=== PATIENT | female | born 1995 | race Caucasian/White ===

== ENCOUNTER 2017-08-16 20:38 | Emergency (ER) | payer OTHER ==
[~2017-08-16] VITALS: Ht 160 cm; Wt 79.5 kg
[2017-08-16 20:42] VITALS: TEMP 99.1
[2017-08-16] MEDS ORDERED: NAPROSYN500 MG PO (22:07)
[2017-08-16 22:22] VITALS: BP 146/75; PULSE 75
== END 2017-08-16 22:22 | disposition home or self-care (01) ==
LOC: COL.ER 20:38
DX: M94.0 Chondrocostal junction syndrome [Tietze] (principal)

== ENCOUNTER → 2018-04-01 | Outpatient (CLI) | payer OTHER ==
[~2018-04-01] MED LIST: NAPROSYN500 MG PO
== END ==
LOC: COL.RAD 13:58
DX: N83.8 Other noninflammatory disorders of ovary, fallopian tube and broad ligament (principal); M53.3 Sacrococcygeal disorders, not elsewhere classified
CPT/HCPCS: Q9967

== ENCOUNTER → 2018-06-03 | Outpatient (CLI) | payer OTHER | LOC: COL.RAD 13:48 | DX: N83.299 Other ovarian cyst, unspecified side (principal) ==

== ENCOUNTER 2019-05-08 01:46 | Emergency (ER) | payer OTHER ==
[~2019-05-08] VITALS: Ht 160 cm; Wt 81.8 kg
[2019-05-08 02:20] LABS: BASO % 0.4 % (0.0-2.0); EOS # 0.1 (0.0-0.7); EOS % 1.7 % (0-4.0); GRAN # 4.1 (1.4-6.5); GRAN % 52.6 % (42.2-75.2); HEMATOCRIT 40.6 % (37.0-47.0); HEMOGLOBIN 13.5 g/dl (12.5-16.0); LYMPH % 38.3 % (20.0-51.0); MEAN CELL VOLUME 87 fl (80.0-100.0); MEAN CORPUSCULAR HEMOGLOBIN 29 pg (27.0-31.0); MEAN CORPUSCULAR HGB CONC 33 g/dl (33.0-37.0); MEAN PLATELET VOLUME 9.6 fl (7.4-10.4); MONO # 0.5 (0.1-0.6); MONO % 6.7 % (1.7-9.3); PLATELET COUNT 259 K/mm3 (130-400); RED BLOOD COUNT 4.66 M/mm3 (4.10-5.30)
[2019-05-08 02:26] LABS: ALANINE AMINOTRANSFERASE < 6 U/L (9-52); ALBUMIN 4.8 gm/dL (3.5-5.0); ALKALINE PHOSPHATASE 76 U/L (50-136); ANION GAP 12 mmol/L (7-16); AST,SGOT 21 U/L (15-37); BILIRUBIN,TOTAL 0.3 mg/dL (0.0-1.0); BLOOD UREA NITROGEN 11 mg/dL (7-17); CALCIUM 9.8 mg/dL (8.4-10.2); CARBON DIOXIDE 27 mmol/L (22-30); CHLORIDE 101 mmol/L (98-107); CREATININE, serum 0.65 (0.52-1.25); GLUCOSE 104 mg/dL (74-106); LIPASE 61 U/L (23-300); POTASSIUM 3.6 mmol/L (3.4-5.0); SODIUM 141 mmol/L (137-145); TOTAL PROTEIN 8.7 gm/dL (6.4-8.2)
[2019-05-08 02:37] LABS: COLLECTION METHOD CLEAN CATCH
[2019-05-08 02:45] LABS: MUCOUS Present /lpf; PH 5 (5-8); URINE APPEARANCE Hazy; URINE BACTERIA Rare /hpf; URINE BILIRUBIN Negative (NEGATIVE); URINE BLOOD Negative (NEGATIVE); URINE COLOR Yellow; URINE GLUCOSE Negative (NEGATIVE); URINE KETONE Negative (NEGATIVE); URINE LEUKOCYTE ESTERASE Negative (NEGATIVE); URINE NITRATE Negative (NEGATIVE); URINE PROTEIN(semi-quant) Negative (NEGATIVE); URINE UROBILINOGEN Negative (NEGATIVE)
[2019-05-08] MEDS ORDERED: ZOFRAN 4MG T4 MG/TAB PO (04:14)
[2019-05-08 05:15] VITALS: BP 110/64; TEMP 98.3
[2019-05-08] MEDS ORDERED: NORCO 325 MG-51 TAB PO (08:41)
[2019-05-08 09:00] VITALS: PULSE 62
== END 2019-05-08 09:00 | disposition home or self-care (01) ==
LOC: COL.ER 01:46
PROVIDERS: Emergency Medicine
DX: R10.11 Right upper quadrant pain (principal); Z90.89 Acquired absence of other organs; Z88.0 Allergy status to penicillin
CPT/HCPCS: J1885